=== PATIENT | female | born 1945 | race Two or more races ===

== ENCOUNTER 2016-08-17 10:12 | Emergency (ER) | payer MEDICAID ==
[~2016-08-17] VITALS: Ht 160 cm; Wt 91.0 kg
[~2016-08-17 10:12] MED LIST: ATEN-42 PO; ENAL5TAB PO
[2016-08-17] MEDS ORDERED: HYDROCODONE/ACETAMINOPHEN 5/325MG TABLET PO ONE (11:00)
[2016-08-17 12:10] VITALS: BP 122/68
== END 2016-08-17 12:26 | disposition home or self-care (01) ==
LOC: ER 11:52
DX: M10.9 Gout, unspecified (principal); M79.674 Pain in right toe(s); I10 Essential (primary) hypertension; Z90.49 Acquired absence of other specified parts of digestive tract; Z88.3 Allergy status to other anti-infective agents; Z88.0 Allergy status to penicillin
CPT/HCPCS: 73660; 99283

== ENCOUNTER 2016-09-21 12:25 | Emergency (ER) | payer MEDICAID, OTHER ==
[~2016-09-21] VITALS: Ht 157.5 cm; Wt 96.0 kg
[2016-09-21 15:25] VITALS: BP 129/60
[2016-09-21] MEDS ORDERED: DIPHENHYDRAMINE 50MG/ML VIAL IM ONE (15:30)
[2016-09-21] MEDS ORDERED: DEXAMETHASONE 10MG/ML 1ML VIAL IM ONE (15:30)
== END 2016-09-21 15:49 | disposition home or self-care (01) ==
LOC: ER 15:38
DX: L50.9 Urticaria, unspecified (principal); I10 Essential (primary) hypertension; Z90.49 Acquired absence of other specified parts of digestive tract; Z88.0 Allergy status to penicillin; Z88.3 Allergy status to other anti-infective agents; Z90.710 Acquired absence of both cervix and uterus
CPT/HCPCS: 96372; 99284; J1100; J1200